=== PATIENT | female | born 1950 | race African-American/Black ===

== ENCOUNTER 2017-05-20 17:13 | Emergency (ER) | payer MEDICARE, MEDICAID ==
[~2017-05-20] VITALS: Ht 165.1 cm; Wt 82.0 kg
[~2017-05-20 17:13] MED LIST: TIOT18CA3
[2017-05-20] MEDS ORDERED: ACETAMINOPHEN 325MG TABLET PO ONE (19:00)
[2017-05-20 21:45] VITALS: BP 129/79
== END 2017-05-20 22:00 | disposition home or self-care (01) ==
LOC: ER 17:32
DX: M79.604 Pain in right leg (principal); M79.642 Pain in left hand; I10 Essential (primary) hypertension; J44.9 Chronic obstructive pulmonary disease, unspecified
CPT/HCPCS: 73130; 73552; 73560; 99284

== ENCOUNTER 2017-06-02 09:09 | Emergency (ER) | payer MEDICARE, MEDICAID ==
[~2017-06-02] VITALS: Ht 175.3 cm; Wt 76.0 kg
[2017-06-02] MEDS ORDERED: ACETAMINOPHEN 500MG TABLET PO ONE (10:45)
[2017-06-02] MEDS ORDERED: TRAMADOL 50MG TABLET PO ONE (12:15)
[2017-06-02 13:40] VITALS: BP 128/76
== END 2017-06-02 14:21 | disposition home or self-care (01) ==
LOC: ER 09:09
DX: S52.515A Nondisplaced fracture of left radial styloid process, initial encounter for closed fracture (principal); I10 Essential (primary) hypertension; J44.9 Chronic obstructive pulmonary disease, unspecified; W19.XXXA Unspecified fall, initial encounter; Y93.89 Activity, other specified; Y92.89 Other specified places as the place of occurrence of the external cause; Y99.8 Other external cause status
CPT/HCPCS: 29125; 70450; 73130; 73502; 99284

== ENCOUNTER 2021-01-07 12:18 | Inpatient (IN) | payer OTHER, MEDICAID ==
[~2021-01-07] VITALS: Ht 162.6 cm; Wt 84.8 kg
[2021-01-07] MEDS ORDERED: ONDANSETRON HCL 4MG/2ML INJ IV STA (12:34)
[2021-01-07] MEDS ORDERED: MORPHINE SULFATE 4 MG/ML CPJ (NOT FOR IM USE) IV STA (12:34)
[2021-01-07] MEDS ORDERED: ASPIRIN 81MG TABLET PO ONE (12:45)
[2021-01-07] MEDS ORDERED: NITROGLYCERIN 0.4MG TABLET SL SL PRN (12:45)
[2021-01-07 12:52] LABS: BASOPHILS % 0.6 % (0.0-2.0); EOSINOPHILS % 1.5 % (0.0-5.0); HEMATOCRIT. 47.1 % (36.0-48.0); HEMOGLOBIN. 15.8 g/dL (12.0-16.0); LYMPHOCYTES % 22.3 % (20.0-50.0); MEAN CORPUSCULAR HEMOGLOBIN 30.7 pg (28.0-32.0); MEAN CORPUSCULAR VOLUME 91.9 fL (81.0-99.0); MONOCYTES % 8.8 % (2.0-8.0); NEUTROPHILS % 66.8 % (40.0-76.0); PLATELET 134 x1000/uL (130-400); RED BLOOD CELL COUNT 5.13 mill/uL (4.2-5.4); RED CELL DISTRIBUTION WIDTH 15.7 % (11.6-14.6)
[2021-01-07 13:01] LABS: CHLORIDE 103 mEq/L (98-107)
[2021-01-07 13:11] LABS: D-DIMER 0.7 mg/L FEU (<0.50); INR 1.1; PARTIAL THROMBOPLASTIN TIME 26.6 sec (23.4-31.0); PROTHROMBIN TIME 11.6 sec (9.6-11.0)
[2021-01-07] MEDS ORDERED: IOHEXOL-350 100 ML BOTTLE ONE (14:30)
[2021-01-07] MEDS ORDERED: CEFTRIAXONE 1 G PREMIX 50 ML IV ONE (14:45)
[2021-01-07] MEDS ORDERED: AZITHROMYCIN 500 MG in DEXT 5% WATER 250 ML IV ONE (14:45)
[2021-01-07 15:03] LABS: CLARITY URINE CLEAR (CLEAR); COLOR URINE YELLOW (YELLOW); KETONES URINE NEGATIVE (NEGATIVE); LEUKOCYTE ESTERASE URINE 1+ (NEGATIVE); NITRITE URINE NEGATIVE (NEGATIVE); OCCULT BLOOD URINE NEGATIVE (NEGATIVE); PH URINE 7.5 (4.5-8.0); PROTEIN URINE NEGATIVE (NEGATIVE); SPECIFIC GRAVITY URINE 1.033 (1.005-1.030); UROBILINOGEN URINE 0.2 E.U./dL (0.2-1.0)
[2021-01-07] MEDS ORDERED: ALBUTEROL 6.7GM HFA INHALER ORI PRN (16:15)
[2021-01-07] MEDS ORDERED: ACETAMINOPHEN 325MG TABLET PO PRN (16:15)
[2021-01-07] MEDS ORDERED: DEXAMETHASONE 10 MG/ML VIAL IV ONE (16:45)
[2021-01-07 17:04] VITALS: BP 144/2
[2021-01-07] MEDS: ONDANSETRON HCL 4MG/2ML INJ IV PRN ×3 (17:47→23:49)
[2021-01-07 19:29] LABS: LDL CHOLESTEROL 125 mg/dL (5-100)
[2021-01-07 19:31] LABS: HDL CHOLESTEROL 63 mg/dL (40-59)
[2021-01-07 20:28] VITALS: BP 153/98
[2021-01-08 00:02] VITALS: BP 130/81
[2021-01-08 00:50] VITALS: BP 130/89
[2021-01-08] MEDS ORDERED: ALBUTEROL (0.083%) 2.5MG/3ML NEB HHN PRN (02:15)
[2021-01-08 08:00] VITALS: BP 123/80
[2021-01-08] MEDS: ASPIRIN 81MG TABLET PO SCH (09:24)
[2021-01-08] MEDS ORDERED: TRAMADOL 50MG TABLET PO PRN (10:00)
[2021-01-08 12:00] VITALS: BP 140/89
[2021-01-08 16:18] VITALS: BP 132/90
[2021-01-08 20:00] VITALS: BP 147/85
[2021-01-09] VITALS: BP 113/69
[2021-01-09 04:00] VITALS: BP 119/72
[2021-01-09 06:33] LABS: BASOPHILS % 0.4 % (0.0-2.0); EOSINOPHILS % 0.8 % (0.0-5.0); HEMATOCRIT. 44.8 % (36.0-48.0); HEMOGLOBIN. 14.6 g/dL (12.0-16.0); LYMPHOCYTES % 29.7 % (20.0-50.0); MEAN CORPUSCULAR HEMOGLOBIN 30.5 pg (28.0-32.0); MEAN CORPUSCULAR VOLUME 93.6 fL (81.0-99.0); MEAN PLATELET VOLUME 9.3 fl (7.4-10.4); MONOCYTES % 9.5 % (2.0-8.0); NEUTROPHILS % 59.6 % (40.0-76.0); PLATELET 138 x1000/uL (130-400); RED BLOOD CELL COUNT 4.79 mill/uL (4.2-5.4); RED CELL DISTRIBUTION WIDTH 15.9 % (11.6-14.6)
[2021-01-09 06:37] LABS: CHLORIDE 104 mEq/L (98-107)
[2021-01-09] MEDS ORDERED: LIDOCAINE HCL 1% 20ML VIAL (Pyxis) INJ ONE ×2 (07:16→08:05)
[2021-01-09] MEDS ORDERED: IODIXANOL 320MG/ML 200ML BOTTLE ONE (07:17)
[2021-01-09] MEDS ORDERED: HEPARIN SODIUM 1,000 UNIT/1ML VIAL IV ONE (07:42)
[2021-01-09] MEDS ORDERED: FENTANYL CITRATE/PF 50MCG/ML 5ML VIAL ONE ×2 (08:05→08:43)
[2021-01-09] MEDS ORDERED: MIDAZOLAM HCL 5 MG/5 ML VIAL ONE ×2 (08:05→08:44)
[2021-01-09] MEDS ORDERED: VERAPAMIL HCL 2.5 MG/1 ML 2ML VIAL IV ONE (08:05)
[2021-01-09] MEDS: ASPIRIN 81MG TABLET PO SCH (08:30)
[2021-01-09] MEDS ORDERED: ATROPINE SULFATE 1MG/10ML SYR IV PRN (09:00)
[2021-01-09] MEDS ORDERED: FUROSEMIDE 20MG TABLET PO SCH (10:00)
[2021-01-09] MEDS ORDERED: ALBU18HF2 IH (11:45)
[2021-01-09] MEDS ORDERED: TRAM50TA3 MT (11:46)
[2021-01-09 12:00] VITALS: BP 120/63
[2021-01-09 15:39] VITALS: BP 129/79
[2021-01-09 16:00] VITALS: BP 127/74
== END 2021-01-09 17:45 | disposition home or self-care (01) | DRG 205 ==
LOC: ER 12:18 → 7WST 15:03 → EDBEDREQ 15:15 → ENRESERV 15:36 → 5WST 16:27 → 7WST 16:46 → 5WST 01-08 00:30
PROVIDERS: ADMIT Internal Medicine; ATTEND Internal Medicine
PROC: 4A023N7 Measurement of Cardiac Sampling and Pressure, Left Heart, Percutaneous Approach (ICD-10-PCS; principal; 2021-01-09)
PROC: B2111ZZ Fluoroscopy of Multiple Coronary Arteries using Low Osmolar Contrast (ICD-10-PCS; 2021-01-09)
DX: M94.0 Chondrocostal junction syndrome [Tietze] (principal); I50.33 Acute on chronic diastolic (congestive) heart failure; I25.110 Atherosclerotic heart disease of native coronary artery with unstable angina pectoris; Z96.612 Presence of left artificial shoulder joint; I71.2 Thoracic aortic aneurysm, without rupture; J44.9 Chronic obstructive pulmonary disease, unspecified; D72.819 Decreased white blood cell count, unspecified; Z20.822 Contact with and (suspected) exposure to COVID-19; K75.9 Inflammatory liver disease, unspecified; R54 Age-related physical debility; E78.5 Hyperlipidemia, unspecified; I11.0 Hypertensive heart disease with heart failure; I25.2 Old myocardial infarction; Z87.891 Personal history of nicotine dependence
CPT/HCPCS: 36415; 71045; 71275; 73030; 80048; 80053; 80061; 81003; 83605; 83880; 84443; 84484; 85025; 85379; 93005; 93306; 93458; 99285; C1769; C1887; C1893; J0456; J0696; J1100; J1644; J2250; J2270; J2405; J3010; J3490; J7060; Q9967; U0003

== ENCOUNTER 2025-01-09 14:37 | Emergency (ER) | payer OTHER, MEDICAID ==
[~2025-01-09 14:37] MED LIST changes: +ALBU18HF2 IH; +MELO-104 MT; +NITR-87 MT; +TRAM50TA3 MT
[2025-01-09 15:13] VITALS: BP 158/73; PULSE 80; RESP 16; TEMP 36.7; O2SAT 99
[2025-01-11] MEDS ORDERED: LEVO-65 MT (13:43)
== END 2025-01-09 15:40 | disposition left against medical advice (07) ==
LOC: ER 14:42
DX: Z53.21 Procedure and treatment not carried out due to patient leaving prior to being seen by health care provider (principal)